=== PATIENT | female | born 1995 | race Caucasian/White ===

== ENCOUNTER 2017-09-12 13:52 | Emergency (ER) | payer BC, OTHER ==
[2017-09-12] MEDS ORDERED: diPHENhydraMINE PO* 25 MG PO ONE (14:17)
--- NOTE | 2017-09-12 15:34 | ED ---
Skin Complaint - HPI Summary HPI Summary: Patient here with bilateral elbow chemical exposure prior to arrival. She was cleaning an oven in the kitchen with sweeper cleaner industrial "break up" when the skin of her elbows moved outside of her protective gloves, causing exposure. She rinsed her elbows for a few minutes under water prior to coming up to the ED. She reports a mild burning sensation with blistering over bilateral elbows. Feels okay but reported to construction supervisor/carpenter who advised she come in for eval. Immunizations are up-to-date. Has allergies and sensitive skin in general. - History of Current Complaint Chief Complaint: EDChemNuclearExpose Time Seen by Provider: 09/12/17 14:11 Stated Complaint: CHEMICAL BURN Hx Obtained From: Patient Hx Last Menstrual Period: 10/27/13 Pain Intensity: 2 - Allergy/Home Medications Allergies/Adverse Reactions: Allergies Allergy/AdvReac Type Severity Reaction Status Date / Time No Known Allergies Allergy Verified 03/06/15 19:43 Home Medications: Home Medications Desloratidine (NF) [Clarinex (NF)] 5 mg PO DAILY 09/12/17 [History Confirmed 10/25] Escitalopram (NF) [Lexapro 5 mg (NF)] 5 mg PO BID 09/12/17 [History Confirmed ] PMH/Surg Hx/FS Hx/Imm Hx Previously Healthy: Yes Endocrine/Hematology History: Denies: Autoimmune Disease Respiratory History: Reports: Hx Seasonal Allergies Psychiatric History: Reports: Hx of Violent Episodes Against Others Denies: Hx Eating Disorder, Hx Community Mental Health Tx - Surgical History Surgery Procedure, Year, and Place: Surgical October 2015 - Immunization History Immunizations Up to Date: Yes Infectious Disease History: No Infectious Disease History: Denies: Hx of Known/Suspected MRSA, Traveled Outside the [place] in Last 30 Days - Family History Known Family History: Positive: Other - Ovarian cysts - Social History Occupation: Employed Full-time Alcohol Use: None Hx Substance Use: No Substance Use Type: Reports: None Hx Tobacco Use: No Smoking Status (MU): Never Smoked Tobacco Review of Systems Negative: Fatigue Negative: Blurred Vision, Drainage, Erythema ENT: Negative - no facial swelling Negative: Shortness Of Breath - no wheezing, Cough Negative: Arthralgia, Myalgia, Decreased ROM, Edema Skin: Other - elbows Neurological: Negative Psychological: Normal All Other Systems Reviewed And Are Negative: Yes Physical Exam Triage Information Reviewed: Yes Vital Signs On Initial Exam: Initial Vitals Temp Pulse Resp BP Pulse Ox 98.4 F 68 14 114/64 98 09/12/17 13:58 09/12/17 13:58 09/12/17 13:58 09/12/17 13:58 09/12/17 13:58 Vital Signs Reviewed: Yes Appearance: Positive: Well-Appearing, No Pain Distress, Well-Nourished Skin: Positive: Warm, Skin Color Reflects Adequate Perfusion, Dry - small cluster of scant/small budding vesicles over olecranon p of B/L elbows - faint erythema compared to surrounding skin - no streaking, no drainage, no desquamatization Head/Face: Positive: Normal Head/Face Inspection Eyes: Positive: Normal, EOMI, Conjunctiva Clear. Negative: Conjunctiva Inflammed, Discharge ENT: Positive: Hearing grossly normal, Other - no facial swelling Neck: Positive: Supple, Nontender, No Lymphadenopathy Respiratory/Lung Sounds: Positive: Clear to Auscultation, Breath Sounds Present. Negative: Stridor, Wheezes Cardiovascular: Positive: Normal Abdomen Description: Positive: Nontender - no nausea Musculoskeletal: Positive: Normal, Strength/ROM Intact Neurological: Positive: Normal, Sensory/Motor Intact, Alert, Oriented to Person Place, Time, CN Intact II-III Psychiatric: Positive: Normal Diagnostics - Vital Signs Vital Signs Temp Pulse Resp BP Pulse Ox 09/12/17 13:58 98.4 F 68 14 114/64 98 - Laboratory Lab Statement: Any lab studies that have been ordered have been reviewed, and results considered in the medical decision making process. Course/Dx - Course Course Of Treatment: MSDS states to rinse area with water for min 15 mins so pt did this here in ED. Offered benadryl for reaction which appears to be quite mild. SHe reports burning sensation improved after rinsing and has no restrictions w/ movement. Will cover with sterile lubricant and clean gauze if needs to wear long sleeve shirts in an effort to protect skin here. She removed her shirt and has not reapplied - advised to wash before wearing again. F/u w/ PCP and return to ED if danger s/sx present. - Diagnoses Provider Diagnoses: Alkaline chemical burn of skin Discharge - Sign-Out/Discharge Documenting (check all that apply): Discharge/Admit/Transfer - Discharge Plan Condition: Stable Disposition: HOME Patient Education Materials: Chemical Skin Burn (ED) Referrals: Yariel Teague MD [Primary Care Provider] - Additional Instructions: Keep skin uncovered and avoid topical such as antibiotic ointment, cosmetics, cleaning solutions such as soaps, etc. if you are wearing longsleeve shirt, he may apply plain lubricant to the affected areas and cover with clean gauze to protect these areas from rubbing on your sleeves. Otherwise, leave open to air. He may take Benadryl 50 mg when he gets home tonight to prevent any further histamine reaction that can lead to swelling, itching and pain. You may also apply ice to the areas they're painful or swollen. Additionally, he may take ibuprofen with food for pain or swelling. Follow up with her PCP tomorrow for recheck of these wounds to make sure they are not worsening in the next 24 hours. Call tomorrow to schedule an appointment. *If you develop difficulty breathing, swallowing or facial swelling, chest tightness, shortness of breath, return to the emergency department. - Billing Disposition and Condition Condition: STABLE Disposition: HOME
[2017-09-12 15:59] VITALS: BP 105/64
== END 2017-09-12 15:59 | disposition home or self-care (01) ==
LOC: ED 13:52
DX: T65.891A Toxic effect of other specified substances, accidental (unintentional), initial encounter (principal); Y93.E9 Activity, other interior property and clothing maintenance; T22.4 Corrosion of unspecified degree of shoulder and upper limb, except wrist and hand; Y92.9 Unspecified place or not applicable
CPT/HCPCS: 99281

== ENCOUNTER 2018-08-29 20:29 | Emergency (ER) | payer BC ==
--- OUTSIDE RECORDS SUMMARY | 2018-08-29 20:35 | XMS REPORT | Continuity of Care Document ---
:1995 External Reference #:[id number] Author Name Kristen Sawyer Care Team Providers Name Role Phone Terese Mejias MD Primary Care Physician Unavailable Payers Date Identification Numbers Payment Provider Subscriber Effective: 2017 Policy Number: [id number] KELLEE Chang PayID: [id number] [address] [address] [place] [id number] Advance Directives Description No Information Available Problems Date Description Provider Status Onset: 05/13/2017 Mild recurrent major depression Yariel Teague M.D. Active Onset: 05/13/2017 Panic disorder with agoraphobia Yariel Teague M.D. Active Onset: 08/10/2017 Contact dermatitis Yariel Teague M.D. Active Family History Date Family Member(s) Observation Comments Father Heart Disease Father Kidney Disease Siblings 1 brain cancer Social History Type Date Description Comments Sex Unknown Tobacco Use Start: Unknown Patient has never smoked Smoking Status Reviewed: 08/02/18 Patient has never smoked Allergies, Adverse Reactions, Alerts Description No Known Drug Allergies Medications Medication Date Status Form Strength Qnty SIG Indications Ordering Provider Hydroxyzine HCL 08/02/ Active Tablets 25mg 60tab 1-2 tablets F41.9 Manuel 2019 s by mouth ELIZABETH Ross every 6 hours as needed for anxiety Citalopram 08/02/ Active Tablets 20mg 30tab 1/2 by mouth F41.9 Manuel Hydrobromide 2019 s every day ELIZABETH Ross for one week and then increase to a whole tablet. Vitamin B12 / Active Tablets ER 1000mcg 1 by mouth Unknown 0000 every day Fish Oil / Active Capsules 1000mg 1 tab by Unknown 0000 mouth every morning Apri / Active Tablets 0.15-30mg 1 by mouth Unknown 0000 -mcg every day Bupropion HCL 06/17/ Hx Tablets 100mg 1 by mouth F41.9 Zsofia 2019 - every day Shaka, 06/17/ COTTAGE SUPERVISOR 2018 Bupropion HCL 06/17/ Hx Tablets 100mg 30tab take 1/2 po F41.9 Zsofia 2019 - s Am every Shaka, 08/02/ other day COTTAGE SUPERVISOR 2019 alternating with Lexapro as discussed Bupropion HCL 06/15/ Hx Tablets ER 100mg 60tab take 1 F41.9 Zsofia ER (SR) 2019 - 12HR s tablet by Shaka, 06/17/ mouth every COTTAGE SUPERVISOR 2019 day in the morning and early afternoon as directed Desloratadine 08/10/ Hx Tablets 5mg 30tab 1 by mouth L30.9 Yariel 2018 - s every day Zahida 06/15/ Shane 2018 No Active 05/13/ Hx Unknown Medications 2017 - 2017 Escitalopram 05/13/ Hx Tablets 5mg 60tab 2 tabs by F33.0 Zsofia Oxalate 2018 - s mouth daily Shaka, 08/02/ and taper as COTTAGE SUPERVISOR 2018 discussed Medications Administered in Office Medication Date Status Form Strength Qnty SIG Indications Ordering Provider Meningococcal, Administered Injection Unknown Unspecified 011 Polio,Unspecif Administered Injection Unknown ied 003 Polio,Unspecif Administered Injection Unknown ied 002 Polio,Unspecif Administered Injection Unknown ied 997 Polio,Unspecif Administered Injection Unknown ied 997 Immunizations CPT Code Status Date Vaccine Lot # [id number] Given 12/27/2013 Varicella (Chicken Pox) Immunization 25947 Given 12/21/2012 Gardasil (HPV) 29909 Given 01/17/2008 Tdap - Tetanus/Diptheria/Acellular Pertussis 25333 Given 08/12/2002 Tdap - Tetanus/Diptheria/Acellular Pertussis 23303 Given 07/26/2002 Varicella (Chicken Pox) Immunization 95759 Given 01/28/2002 Measles Mumps And Rubella MMR 57205 Given 12/24/2001 Tdap - Tetanus/Diptheria/Acellular Pertussis 75637 Given 12/24/2001 Measles Mumps And Rubella MMR 83182 Given 07/11/1997 Hib PRP-Omp Conjugate 3 Dose Schedule 94371 Given 07/11/1997 Tdap - Tetanus/Diptheria/Acellular Pertussis 19272 Given 07/11/1997 Hep B Pediatric/Adolescent 60820 Given 04/09/1997 Tdap - Tetanus/Diptheria/Acellular Pertussis 07638 Given 04/09/1997 Hib PRP-Omp Conjugate 3 Dose Schedule 68301 Given 02/07/1997 Hep B Pediatric/Adolescent 55578 Given 02/07/1997 Tdap - Tetanus/Diptheria/Acellular Pertussis 40641 Given 02/07/1997 Hib PRP-Omp Conjugate 3 Dose Schedule 28474 Given 1996 Hep B Pediatric/Adolescent Vital Signs Date Vital Result Comment 08/02/2018 9:23am Height 61 inches 5'1" Weight 179.00 lb Heart Rate 75 /min BP Systolic 104 mmHg BP Diastolic 67 mmHg Body Temperature 98.0 F O2 % BldC Oximetry 98 % BMI (Body Mass Index) 33.8 kg/m2 06/15/2018 8:19am Height 61 inches 5'1" Weight 176.50 lb Heart Rate 73 /min BP Systolic 111 mmHg BP Diastolic 65 mmHg Body Temperature 97.7 F O2 % BldC Oximetry 100 % BMI (Body Mass Index) 33.3 kg/m2 08/10/2017 7:46am Weight 162.00 lb Heart Rate 73 /min BP Systolic 115 mmHg BP Diastolic 60 mmHg Body Temperature 98.0 F O2 % BldC Oximetry 98 % 05/26/2017 3:31pm Weight 158.00 lb Heart Rate 58 /min BP Systolic Sitting 122 mmHg BP Diastolic Sitting 69 mmHg Body Temperature 97.5 F O2 % BldC Oximetry 98 % 05/13/2017 4:04pm Height 62 inches 5'2" Weight 158.12 lb Heart Rate 70 /min BP Systolic Sitting 116 mmHg BP Diastolic Sitting 76 mmHg Body Temperature 98.7 F O2 % BldC Oximetry 97 % BMI (Body Mass Index) 28.9 kg/m2 Results Test Date Facility Test Result H/L Range Note CBC Auto Diff 10/05/2017 [facility] White Blood 7.4 10^3/uL N 3.5-10.[address] [place] [address] [phone] Red Blood Count 4.30 10^6/uL N 4.0-5.4 Hemoglobin 12.4 g/dL N 12.0-16.0 Hematocrit 38 % N 35-47 Mean Corpuscular Volume 88 fL N 80-97 Mean Corpuscular Hemoglobin 29 pg N 27-31 Mean Corpuscular HGB Conc 33 g/dL N 31-36 Red Cell Distribution Width 13 % N 10.5-15 Platelet Count 245 10^3/uL N 150-450 Mean Platelet Volume 9.3 um3 N 7.4-10.4 Abs Neutrophils 4.6 10^3/uL N 1.5-7.7 Abs Lymphocytes 2.1 10^3/uL N 1.0-4.8 Abs Monocytes 0.6 10^3/uL N 0-0.8 Abs Eosinophils 0.1 10^3/uL N 0-0.6 Abs Basophils 0 10^3/uL N 0-0.2 Abs Nucleated RBC 0 10^3/uL Granulocyte % 61.7 % N 38-83 Lymphocyte % 28.1 % N 25-47 Monocyte % 7.8 % High 0-7 Eosinophil % 1.9 % N 0-6 Basophil % 0.5 % N 0-2 Nucleated Red Blood Cells % 0 Comp Metabolic Panel 10/05/2017 [facility] Sodium 136 mmol/L Low 139-145 [address] [place] [address] [phone] Potassium 4.2 mmol/L N 3.5-5.0 Chloride 102 mmol/L N 101-111 Co2 Carbon Dioxide 28 mmol/L N 22-32 Anion Gap 6 mmol/L N 2-11 Glucose 85 mg/dL N 70-100 Blood Urea Nitrogen 12 mg/dL N 6-24 Creatinine 0.75 mg/dL N 0.51-0.95 BUN/Creatinine Ratio 16.0 N 8-20 Calcium 9.2 mg/dL N 8.6-10.3 Total Protein 6.9 g/dL N 6.4-8.9 Albumin 4.5 g/dL N 3.2-5.2 Globulin 2.4 g/dL N 2-4 Albumin/Globulin Ratio 1.9 N 1-3 Total Bilirubin 0.30 mg/dL N 0.2-1.0 Alkaline Phosphatase 71 U/L N 34-104 Alt 11 U/L N 7-52 Ast 17 U/L N 13-39 Egfr Non- 98.5 >60 Egfr 126.7 >60 1 Laboratory test 05/13/2017 [facility] TSH (Thyroid 3.00 mcIU/mL N 0.34-5.[address] Stim [place]) [place] [address] [phone] Comp Metabolic 05/13/2017 [facility] Sodium 136 mmol/L N 133- [address] [place] [address] [phone] Potassium 4.0 mmol/L N 3.5-5.0 Chloride 101 mmol/L N 101-111 Co2 Carbon Dioxide 29 mmol/L N 22-32 Anion Gap 6 mmol/L N 2-11 Glucose 99 mg/dL N 70-100 Blood Urea Nitrogen 18 mg/dL N 6-24 Creatinine 0.78 mg/dL N 0.51-0.95 BUN/Creatinine Ratio 23.1 High 8-20 Calcium 9.5 mg/dL N 8.6-10.3 Total Protein 7.5 g/dL N 6.4-8.9 Albumin 4.7 g/dL N 3.2-5.2 Globulin 2.8 g/dL N 2-4 Albumin/Globulin Ratio 1.7 N 1-3 Total Bilirubin 0.30 mg/dL N 0.2-1.0 Alkaline Phosphatase 72 U/L N 34-104 Alt 16 U/L N 7-52 Ast 17 U/L N 13-39 Egfr Non- 94.2 >60 Egfr 121.1 >60 2 1 Because ethnic data is not always readily available, this report includes an eGFR for both -Americans and non- Americans. The National Kidney Disease Education Program (NKDEP) does not endorse the use of the MDRD equation for patients that are not between the ages of 18 and 70, are , have extremes of body size, muscle mass, or nutritional status, or are non- or non-. According to the National Kidney Foundation, irrespective of diagnosis, the stage of the disease is based on the level of kidney function: Stage Description GFR(mL/min/1.73 m(2)) 1 Kidney damage with normal or decreased GFR 90 2 Kidney damage with mild decrease in GFR 60-89 3 Moderate decrease in GFR 30-59 4 Severe decrease in GFR 15-29 5 Kidney failure <15 (or dialysis) 2 Because ethnic data is not always readily available, this report includes an eGFR for both -Americans and non- Americans. The National Kidney Disease Education Program (NKDEP) does not endorse the use of the MDRD equation for patients that are not between the ages of 18 and 70, are , have extremes of body size, muscle mass, or nutritional status, or are non- or non-. According to the National Kidney Foundation, irrespective of diagnosis, the stage of the disease is based on the level of kidney function: Stage Description GFR(mL/min/1.73 m(2)) 1 Kidney damage with normal or decreased GFR 90 2 Kidney damage with mild decrease in GFR 60-89 3 Moderate decrease in GFR 30-59 4 Severe decrease in GFR 15-29 5 Kidney failure <15 (or dialysis) Procedures Description No Information Available Encounters Type Date Location Provider Dx Diagnosis Office Visit 06/15/2018 [facility] Adri Matt, F41.9 Anxiety disorder , 8:00a Medicine - [place] COTTAGE SUPERVISOR [address] F33.0 Major depressive disorder, recurrent, mild Office Visit 08/10/2017 8:00a [facility] Yariel Teague, F33.0 Major depressive Medicine - M.D. disorder, [address] recurrent, mild L30.9 Dermatitis, unspecified Office Visit 05/26/2017 3:10p [facility] Marva F33.0 Major depressive Medicine - ELIZABETH Harrington disorder, [address] recurrent, mild F41.9 Anxiety disorder, unspecified Office Visit 05/13/2017 4:20p [facility] Yariel Teague, Z00.00 [facility] - M.D. 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
[2018-08-29 20:41] VITALS: BP 109/69
--- NOTE | 2018-08-29 20:47 | UC ---
Lower Extremity/Ankle HPI - HPI Summary HPI Summary: 22 yo female presents with b/l calf pain. She tells me that 3 days ago she was powerlifting and felt a pull in the back of her calves. Since that time has had pain with ambulating and has not been able to return to the gym. She has been trying to rest her legs, but works at a job that requires her to be on her feet the majority of the day. Has not taken anything OTC for her symptoms. - History of Current Complaint Chief Complaint: UCLowerExtremity Stated Complaint: LEG PAIN Time Seen by Provider: 08/29/18 20:47 Hx Obtained From: Patient Hx Last Menstrual Period: 10/27/13 Onset/Duration: Sudden Onset Severity Initially: Moderate Severity Currently: Moderate Pain Intensity: 6 Pain Scale Used: 0-10 Numeric - Allergies/Home Medications Allergies/Adverse Reactions: Allergies Allergy/AdvReac Type Severity Reaction Status Date / Time No Known Allergies Allergy Verified 08/29/18 20:42 Home Medications: Home Medications Citalopram TAB* [CeleXA TAB*] 10 mg PO DAILY 08/29/18 [History Confirmed ] PMH/Surg Hx/FS Hx/Imm Hx Psychological History: Anxiety - Surgical History Surgical History: Yes Surgery Procedure, Year, and Place: Surgical October 2015 - Family History Known Family History: Positive: Other - Ovarian cysts - Social History Lives: With Family Alcohol Use: Rare Substance Use Type: None Smoking Status (MU): Never Smoked Tobacco Household Exposure Type: Cigarettes - Immunization History Most Recent Influenza Vaccination: 02/27/14 Most Recent Pneumonia Vaccination: UNKNOWN Review of Systems All Other Systems Reviewed And Are Negative: Yes Constitutional: Positive: Negative Skin: Positive: Negative Respiratory: Positive: Negative Cardiovascular: Positive: Negative Neurovascular: Positive: Negative Musculoskeletal: Positive: Other: - B/L calf pain Neurological: Positive: Negative Psychological: Positive: Negative Physical Exam - Summary Physical Exam Summary: GENERAL: NAD. WDWN. No pain distress. SKIN: No rashes, sores, lesions, or open wounds. CHEST: No accessory muscle use. Breathing comfortably and in no distress. CV: . Pulses intact popliteal, PT, and DP. Cap refill <2seconds MSK: Mild TTP about gastroc b/l. Pain with plantar and dorsiflexion b/l. Active ROM and strength intact. Negative hua test. Achilles intact. No muscle bulge appreciated. No ecchymosis NEURO: Alert. Sensations intact and symmetric B/L LEs PSYCH: Age appropriate behavior. Triage Information Reviewed: Yes Vital Signs: Initial Vital Signs Temp 98.4 F 08/29/18 20:36 Pulse 71 08/29/18 20:36 Resp 16 08/29/18 20:36 BP 109/69 08/29/18 20:36 Pulse Ox 100 08/29/18 20:36 Vital Signs Reviewed: Yes Lower Extremity Course/Dx - Course Course Of Treatment: Suspect gastroc strain. Advised to RICE and take ibuprofen for discomfort. F/u with [facility] if there is no improvement within a few days. - Differential Dx/Diagnosis Provider Diagnosis: Gastrocnemius strain Discharge - Sign-Out/Discharge Documenting (check all that apply): Patient Departure All imaging exams completed and their final reports reviewed: No Studies - Discharge Plan Condition: Stable Disposition: HOME Patient Education Materials: Muscle Strain (DC) Referrals: Manuel Ross NP [Primary Care Provider] - [facility] [Provider Group] - If Needed Additional Instructions: If you develop a fever, shortness of breath, chest pain, new or worsening symptoms - please call your PCP or go to the ED. 1) Rest, Ice, and elevate your legs as much as possible 2) Try a compression sleeve for comfort 3) Take ibuprofen 600mg every 6-8 hours as needed for pain 4) If your symptoms do not improve within 1 week, please call [facility] at the number below to schedule an appointment for a recheck - Billing Disposition and Condition Condition: STABLE Disposition: Home
== END 2018-08-29 21:08 | disposition home or self-care (01) ==
LOC: UCEAST 20:29
DX: S86.812A Strain of other muscle(s) and tendon(s) at lower leg level, left leg, initial encounter (principal); S86.811A Strain of other muscle(s) and tendon(s) at lower leg level, right leg, initial encounter; X50.3XXA Overexertion from repetitive movements, initial encounter; Y93.B3 Activity, free weights; Y92.9 Unspecified place or not applicable; F41.9 Anxiety disorder, unspecified
CPT/HCPCS: 99211; G0463

== ENCOUNTER 2019-02-11 15:44 | Emergency (ER) | payer BC ==
[2019-02-11 16:05] VITALS: BP 107/57
--- NOTE | 2019-02-11 16:16 | UC ---
Skin Complaint HPI - HPI Summary HPI Summary: 23 yo with 3 month history of recurrent inflammation, tenderness and drainage of a cyst on the mid left buttock. Both she and her mom have at times pressed and poked at it to make it drain. - History of Current Complaint Chief Complaint: UCSkin Time Seen by Provider: 02/11/19 16:07 Stated Complaint: PERSONAL ISSUE Hx Obtained From: Patient Hx Last Menstrual Period: 3 weeks ago ?: Yes Onset/Duration: Gradual Onset, Lasting Weeks Timing: Constant Onset Severity: Mild Current Severity: Mild Pain Intensity: 1 Location: Discrete Character: Raised Aggravating Factor(s): Touch Alleviating Factor(s): Other - compresses and drainage. Associated Signs & Symptoms: Positive: Negative - Allergy/Home Medications Allergies/Adverse Reactions: Allergies Allergy/AdvReac Type Severity Reaction Status Date / Time No Known Allergies Allergy Verified 02/11/19 15:58 Home Medications: Home Medications Apri* 02/11/19 [History] PMH/Surg Hx/FS Hx/Imm Hx Previously Healthy: Yes - Surgical History Surgical History: Yes Surgery Procedure, Year, and Place: Surgical October 2015, wisdom teeth extraction - Family History Known Family History: Positive: Cardiac Disease - father, Diabetes, Renal Disease - father - Social History Occupation: Employed Full-time Lives: With Family Alcohol Use: Rare Substance Use Type: None Smoking Status (MU): Never Smoked Tobacco Household Exposure Type: Cigarettes - Immunization History Most Recent Influenza Vaccination: 02/27/14 Most Recent Pneumonia Vaccination: UNKNOWN Review of Systems All Other Systems Reviewed And Are Negative: Yes Constitutional: Positive: Negative Skin: Positive: Other - raised nodule on buttock Eyes: Positive: Negative Genitourinary: Positive: Negative Motor: Positive: Negative Neurovascular: Positive: Negative Is Patient Immunocompromised?: No Physical Exam Triage Information Reviewed: Yes Appearance: Well-Appearing, No Pain Distress Vital Signs: Initial Vital Signs Temp 99.3 F 02/11/19 15:54 Pulse 94 02/11/19 15:54 Resp 16 02/11/19 15:54 BP 107/57 02/11/19 15:54 Pulse Ox 99 02/11/19 15:54 Eye Exam: Normal ENT: Positive: Normal ENT inspection Respiratory: Positive: Lungs clear, Normal breath sounds Cardiovascular: Positive: RRR, No Murmur Abdomen Description: Positive: Nontender, No Organomegaly, Soft Musculoskeletal Exam: Normal Neurological Exam: Normal Skin Exam: Other - 1 cm raised nodule, firm, with erythema. Not warm or tender, no pointing. Course/Dx - Course Course Of Treatment: No intervention needed at this time. Will refer for excision of subcutaeous sebaceous cyst. - Differential Diagnoses - Skin Complaint Differential Diagnoses: Abscess, Other - sebaceous cyst - Diagnoses Provider Diagnosis: Sebaceous cyst Discharge ED - Sign-Out/Discharge Documenting (check all that apply): Patient Departure All imaging exams completed and their final reports reviewed: No Studies - Discharge Plan Condition: Good Disposition: HOME Patient Education Materials: Cyst (ED) Referrals: Manuel Ross NP [Primary Care Provider] - Pop Garcia MD [Medical Doctor] - Additional Instructions: At this time, there is no evidence of infection or abscess. [facility] for [facility] of the cyst, although you could also check to see if Manuel Ross does cyst removal. If it becomes inflamed in the meantime, use warm compresses and ibuprofen for control of pain. - Billing Disposition and Condition Condition: GOOD Disposition: Home
== END 2019-02-11 16:35 | disposition home or self-care (01) ==
LOC: UCEAST 15:44
DX: L72.3 Sebaceous cyst (principal)
CPT/HCPCS: 99211; G0463

== ENCOUNTER 2019-02-12 17:15 | Emergency (ER) | payer BC ==
[2019-02-12] MEDS ORDERED: Diphenoxylat/Atrop 2.5-0.025M* 1 TAB PO ONE (19:40)
[2019-02-12 20:16] LABS: ABS Eosinophils 0.3 10^3/ul (0-0.6); ABS Lymphocytes 1.8 10^3/ul (1.0-4.8); ABS Monocytes 0.9 10^3/ul (0-0.8); ABS Neutrophils 3.8 10^3/ul (1.5-7.7); Eosinophil % 4.2 %; Hematocrit 39 % (35-47); Hemoglobin 12.8 g/dL (12.0-16.0); Lymphocyte % 26.4 %; Mean Corpuscular HGB Conc 33 g/dL (31-36); Mean Corpuscular Hemoglobin 29 pg (27-31); Mean Corpuscular Volume 87 fL (80-97); Nucleated Red Blood Cells % 0.1; Platelet Count 293 10^3/uL (150-450); Red Blood Count 4.46 10^6 /uL (3.70-4.87); Red Cell Distribution Width 13 % (10-15); White Blood Count 6.8 10^3/uL (3.5-10.8)
[2019-02-12 20:28] LABS: ALT 15 U/L (7-52); AST 16 U/L (13-39); Albumin 4.2 g/dL (3.2-5.2); Albumin/Globulin Ratio 1.5 (1-3); Alkaline Phosphatase 70 U/L (34-104); Anion Gap 6 mmol/L (2-11); BUN/Creatinine Ratio 10.5 (8-20); Blood Urea Nitrogen 8 mg/dL (6-24); C Reactive Protein 8.54 mg/L (<8.01); CO2 Carbon Dioxide 25 mmol/L (22-32); Chloride 104 mmol/L (101-111); EGFR African American 115.1 (>60); EGFR Non-African American 95.2 (>60); Globulin 2.8 g/dL (2-4); Glucose 87 mg/dL (70-100); Potassium 3.8 mmol/L (3.5-5.0); Sodium 135 mmol/L (135-145)
[2019-02-12 20:34] LABS: HCG Pregnancy < 0.60 mIU/mL
--- NOTE | 2019-02-12 20:54 | ED ---
Nausea/Vomiting/Diarrhea HPI - HPI Summary HPI Summary: Patient complains of intermittent crampy abdominal pain with diarrhea 4 days. Diffuse abdominal cramping has onset with urge to defecate, resolved with defecation. Multiple episodes of diarrhea daily. Denies presence of blood in diarrhea. Has attempted Imodium with no relief. Denies recent antibiotic use, recent foreign travel, recent camping. Denies nausea vomiting, fever, cough, sore throat, CP, SOB, change in urine, vaginal symptoms. Also complains of cyst on left buttocks times months. Patient was seen by community care for same yesterday, diagnosed with sebaceous cyst, no I&D, no antibiotics. Patient advised to follow-up with surgery. Patient denies purulent discharge from cyst , does state clear discharge occasionally. - History of Current Complaint Chief Complaint: EDAbdPain Stated Complaint: CYST, DIARRHEA PER PT Time Seen by Provider: 02/12/19 18:58 Hx Obtained From: Patient Hx Last Menstrual Period: 3 weeks ago Onset/Duration: Sudden Onset, Lasting Days Severity Initially: Moderate Severity Currently: Moderate Pain Intensity: 4 Pain Scale Used: 0-10 Numeric Location: Diffuse Character: Cramping Aggravating Factor(s): Nothing Alleviating Factor(s): Nothing Nausea/Vomiting Presence: None Diarrhea Presence: Yes Diarrhea Frequency: Every 15-60 minutes Diarrhea Characteristics: Watery - Allergies/Home Medications Allergies/Adverse Reactions: Allergies Allergy/AdvReac Type Severity Reaction Status Date / Time No Known Allergies Allergy Verified 02/12/19 17:30 PMH/Surg Hx/FS Hx/Imm Hx Endocrine/Hematology History: Denies: Hx Anticoagulant Therapy Respiratory History: Reports: Hx Seasonal Allergies History: Denies: Hx Dialysis Sensory History: Denies: Hx Legally Blind Opthamlomology History: Denies: Hx Eye Prosthesis EENT History: Denies: Hx Deafness Neurological History: Denies: Hx Developmental Delay Psychiatric History: Reports: Hx of Violent Episodes Against Others Denies: Hx Eating Disorder, Hx Community Mental Health Tx - Surgical History Surgery Procedure, Year, and Place: Surgical October 2015, wisdom teeth extraction Infectious Disease History: No Infectious Disease History: Reports: Hx of Known/Suspected MRSA Denies: Traveled Outside the [place] in Last 30 Days - Family History Known Family History: Positive: Cardiac Disease - father, Diabetes, Renal Disease - father, Other - Ovarian cysts - Social History Alcohol Use: Rare Hx Substance Use: No Substance Use Type: Reports: None Hx Tobacco Use: No Smoking Status (MU): Never Smoked Tobacco Review of Systems Constitutional: Negative Eyes: Negative ENT: Negative Cardiovascular: Negative Respiratory: Negative Positive: Abdominal Pain, Diarrhea Genitourinary: Negative Musculoskeletal: Negative Skin: Other Neurological: Negative Psychological: Normal All Other Systems Reviewed And Are Negative: Yes Physical Exam - Summary Physical Exam Summary: Small 2 cm x 2 cm cyst on medial left gluteus. No purulent discharge. Very minimal pain with palpation. No erythema. Exam not consistent with abscess or infection. Abdomen very mildly tender diffusely. Triage Information Reviewed: Yes Vital Signs On Initial Exam: Initial Vitals Temp Pulse Resp BP Pulse Ox 98.8 F 88 16 144/96 99 02/12/19 17:25 02/12/19 17:25 02/12/19 17:25 02/12/19 17:25 02/12/19 17:25 Vital Signs Reviewed: Yes Appearance: Positive: Well-Appearing Skin: Positive: Warm Head/Face: Positive: Normal Head/Face Inspection Eyes: Positive: Normal Neck: Positive: Supple Respiratory/Lung Sounds: Positive: Clear to Auscultation Cardiovascular: Positive: Normal Abdomen Description: Positive: Other: Musculoskeletal: Positive: Normal Neurological: Positive: Normal Psychiatric: Positive: Normal AVPU Assessment: Alert - Alpha Coma Scale Best Eye Response: 4 - Spontaneous Best Motor Response: 6 - Obeys Commands Best Verbal Response: 5 - Oriented Coma Scale Total: 15 Procedures - Sedation Patient Received Moderate/Deep Sedation with Procedure: No Diagnostics - Vital Signs Vital Signs Temp Pulse Resp BP Pulse Ox 02/12/19 17:25 98.8 F 88 16 144/96 99 - Laboratory Lab Results: Lab Results 02/12/19 02/12/19 Range/Units 20:05 20:05 WBC 6.8 (3.5-10.8) 10^3/uL RBC 4.46 (3.70-4.87) 10^6 /uL Hgb 12.8 (12.0-16.0) g/dL Hct 39 (35-47) % MCV 87 (80-97) fL MCH 29 (27-31) pg MCHC 33 (31-36) g/dL RDW 13 (10-15) % Plt Count 293 (150-450) 10^3/uL MPV 9.0 (7.4-10.4) fL Neut % (Auto) 55.9 % Lymph % (Auto) 26.4 % [place] % (Auto) 12.9 % Eos % (Auto) 4.2 % Baso % (Auto) 0.6 % Absolute Neuts (auto) 3.8 (1.5-7.7) 10^3/ul Absolute Lymphs (auto) 1.8 (1.0-4.8) 10^3/ul Absolute Monos (auto) 0.9 H (0-0.8) 10^3/ul Absolute Eos (auto) 0.3 (0-0.6) 10^3/ul Absolute Basos (auto) 0.0 (0-0.2) 10^3/ul Absolute Nucleated RBC 0.0 10^3/ul Nucleated RBC % 0.1 Sodium 135 (135-145) mmol/L Potassium 3.8 (3.5-5.0) mmol/L Chloride 104 (101-111) mmol/L Carbon Dioxide 25 (22-32) mmol/L Anion Gap 6 (2-11) mmol/L BUN 8 (6-24) mg/dL Creatinine 0.76 (0.51-0.95) mg/dL Est GFR ( Amer) 115.1 (>60) Est GFR (Non-Af Amer) 95.2 (>60) BUN/Creatinine Ratio 10.5 (8-20) Glucose 87 (70-100) mg/dL Calcium 9.0 (8.6-10.3) mg/dL Total Bilirubin 0.20 (0.2-1.0) mg/dL AST 16 (13-39) U/L ALT 15 (7-52) U/L Alkaline Phosphatase 70 (34-104) U/L C-Reactive Protein 8.54 H (<8.01) mg/L Total Protein 7.0 (6.4-8.9) g/dL Albumin 4.2 (3.2-5.2) g/dL Globulin 2.8 (2-4) g/dL Albumin/Globulin Ratio 1.5 (1-3) Beta HCG, Quant < 0.60 mIU/mL Result Diagrams: 02/12/19 20:05 02/12/19 20:05 Lab Statement: Any lab studies that have been ordered have been reviewed, and results considered in the medical decision making process. Naus/Vom/Diarrhea Course/Dx - Course Course Of Treatment: Patient complains of intermittent crampy abdominal pain with diarrhea 4 days. Diffuse abdominal cramping has onset with urge to defecate, resolved with defecation. Multiple episodes of diarrhea daily. Denies presence of blood in diarrhea. Has attempted Imodium with no relief. Denies recent antibiotic use, recent foreign travel, recent camping. Denies nausea vomiting, fever, cough, sore throat, CP, SOB, change in urine, vaginal symptoms. Also complains of cyst on left buttocks times months. Patient was seen by community care for same yesterday, diagnosed with sebaceous cyst, no I&D , no antibiotics. Patient advised to follow-up with surgery. Patient denies purulent discharge from cyst, does state clear discharge occasionally. Vital signs within normal limits. Labs unremarkable. Patient advised to follow-up with surgery for further evaluation of cyst. Trial of low until for diarrhea. - Differential Dx/Diagnosis Provider Diagnosis: Sebaceous cyst, Diarrhea Condition At Discharge: Stable Discharge ED - Sign-Out/Discharge Documenting (check all that apply): Patient Departure - Discharge Plan Condition: Stable Disposition: HOME Prescriptions: Diphenoxylat/Atrop 2.5-0.025M* [Lomotil TAB*] 2 tab PO QID 2 Days #16 tab MDD 8 tabs Patient Education Materials: Acute Diarrhea (ED), Cyst (ED) Forms: *Work Release Referrals: Manuel Ross NP [Primary Care Provider] - Pop Garcia MD [Medical Doctor] - - Billing Disposition and Condition Condition: STABLE Disposition: Home - Attestation Statements Provider Attestation: I was available for consult. This patient was seen by the [facility]. The patient was not presented to, seen by, or examined by me. Kavon Dupree MD
[2019-02-12 22:12] VITALS: BP 133/74
== END 2019-02-12 21:15 | disposition home or self-care (01) ==
LOC: ED 17:15
DX: L72.3 Sebaceous cyst (principal); R19.7 Diarrhea, unspecified
CPT/HCPCS: 36415; 80053; 84702; 85025; 86140; 99282; A9270-GY

== ENCOUNTER 2019-07-31 13:50 | Inpatient (IN) | payer BC ==
--- NOTE | 2019-07-31 14:20 | ED ---
Psychiatric Complaint - HPI Summary HPI Summary: Patient is a 23 y/o F presenting to the ED for a psychiatric complaint. Over the past year, her mental health issues have worsened, including increased anxiety and SI. Patient continues to report SI and anxiety. She denies any other physical complaints, including fever. No aggravating or alleviating factors are reported. PMHx is significant for anxiety and depression. A few months ago, she stopped taking her medications for anxiety and depression for laboratory work and to assess for a thyroid issue. She has seen a psychiatrist in the past, but currently only follows up with her PCP for her mental health problems. Patient notes an inpatient admission for mental health in the past. - History Of Current Complaint Time Seen by Provider: 07/31/19 13:56 Hx Obtained From: Patient Hx Last Menstrual Period: 05/11/19 Onset/Duration: Sudden Onset, Still Present Timing: Constant Severity Initially: Moderate Severity Currently: Moderate Character: Depressed, Anxious Aggravating Factor(s): Nothing Alleviating Factor(s): Nothing Associated Signs And Symptoms: Positive: Negative Related History: Positive For: Prior Psychiatric Issues Has Suicidal: Reports: Thoughts - Allergies/Home Medications Allergies/Adverse Reactions: Allergies Allergy/AdvReac Type Severity Reaction Status Date / Time No Known Allergies Allergy Verified 07/31/19 13:59 Home Medications: Home Medications Meloxicam(NF) [Mobic(NF)] 7.5 mg PO DAILY 07/31/19 [History Confirmed 07/31/19] PMH/Surg Hx/FS Hx/Imm Hx Previously Healthy: Yes Endocrine/Hematology History: Reports: Hx Thyroid Disease Denies: Hx Anticoagulant Therapy Respiratory History: Reports: Hx Seasonal Allergies History: Denies: Hx Dialysis Sensory History: Denies: Hx Eye Prosthesis, Hx Legally Blind, Hx Deafness Opthamlomology History: Denies: Hx Eye Prosthesis, Hx Legally Blind EENT History: Denies: Hx Deafness Neurological History: Denies: Hx Developmental Delay Psychiatric History: Reports: Hx Anxiety, Hx Depression, Hx of Violent Episodes Against Others Denies: Hx Eating Disorder, Hx Community Mental Health Tx - Surgical History Surgical History: Yes Surgery Procedure, Year, and Place: Surgical October 2015, wisdom teeth extraction Infectious Disease History: Yes Infectious Disease History: Reports: Hx of Known/Suspected MRSA - on face many years ago Denies: Traveled Outside the [place] in Last 30 Days - Family History Known Family History: Positive: Cardiac Disease - father, Diabetes, Renal Disease - father, Other - Ovarian cysts - Social History Occupation: Employed Full-time Alcohol Use: Weekly Hx Substance Use: No Substance Use Type: Reports: None Hx Tobacco Use: No Smoking Status (MU): Never Smoked Tobacco Review of Systems Negative: Fever Psychological: Other - Positive SI Positive: Anxious, Depressed All Other Systems Reviewed And Are Negative: Yes Physical Exam - Summary Physical Exam Summary: General: Well appearing, no distress HEENT: PERRL Cardiovascular: Skin is well perfused Pulmonary: No respiratory distress, no tachypnea Abdomen: Non-distended Skin: Warm, pink, dry MSK: No edema Psych: Tearful, positive SI. Neuro: A&Ox3 Triage Information Reviewed: Yes Vital Signs On Initial Exam: Initial Vitals Temp Pulse Resp BP Pulse Ox 99.2 F 81 16 127/77 99 07/31/19 13:53 07/31/19 13:53 07/31/19 13:53 07/31/19 13:53 07/31/19 13:53 Vital Signs Reviewed: Yes Procedures - Sedation Patient Received Moderate/Deep Sedation with Procedure: No Diagnostics - Vital Signs Vital Signs Temp Pulse Resp BP Pulse Ox 07/31/19 13:53 99.2 F 81 16 127/77 99 - Laboratory Result Diagrams: 07/31/19 14:25 07/31/19 14:25 Lab Statement: Any lab studies that have been ordered have been reviewed, and results considered in the medical decision making process. Re-Evaluation - Re-Evaluation First Eval Re-Evaluation Time: 14:15 Change: Unchanged Comment: At 14:15, patient is medically cleared for a mental health evaluation. Course/Dx - Course Course Of Treatment: Patient presenting for mental health clearance. Patient has no active medical conditions warrantly further w/u, vital signs are stable. Patient placed in mental health gown and placed on observation. We'll obtain mental health evaluation. - Differential Dx/Clinical Impression Provider Diagnosis: Depressive disorder - Physician Notifications Discussed Care Of Patient With: Zechariah Mulligan - At 17:02, catering and events manager reports that the patients case was reviewed by Dr. Zechariah Mulligan who will voluntarily admit the patient to [facility] with a diagnosis of depressive disorder. Time Discussed With Above Provider: 17:02 Instructed by Provider To: Admit As Inpatient Discharge ED - Sign-Out/Discharge Documenting (check all that apply): Patient Departure - Admit - Discharge Plan Condition: Stable Disposition: PSYCHIATRIC FACILITY-[facility] - Billing Disposition and Condition Condition: STABLE Disposition: Psychiatric Facility [facility] - Attestation Statements Document Initiated by Carmen: Yes Documenting Scribe: Lor Maurice Provider For Whom Carmen is Documenting (Include Credential): Juan Pablo Boyle MD Scribe Attestation: Lor Zazueta, scribed for Juan Pablo Boyle MD on 07/31/19 at 1801. Scribe Documentation Reviewed: Yes Provider Attestation: The documentation as recorded by the Lor garcia accurately reflects the service I personally performed and the decisions made by Juan Pablo de la rosa MD Status of Scribe Document: Viewed
--- OUTSIDE RECORDS SUMMARY | 2019-07-31 14:23 | XMS REPORT | Continuity of Care Document ---
:1995 External Reference #:[id number] Author Name Manuel Ross NP (transmitted by agent of provider Keisha Alaniz) Address [address] [facility], [address] [place] [id number] Care Team Providers Name Role Phone Terese Mejias MD - Internal Medicine Care Team Information Vegetable Thinner Problems Active Problems Provider Date Mild recurrent major depression Yariel Teague M.D. Onset: 05/13/2017 Panic disorder with agoraphobia Yariel Teague M.D. Onset: 05/13/2017 Contact dermatitis Yariel Teague M.D. Onset: 08/10/2017 Social History Type Date Description Comments Sex Unknown Tobacco Use Start: Unknown Patient has never smoked Smoking Status Reviewed: 07/17/19 Patient has never smoked Allergies, Adverse Reactions, Alerts Description No Known Drug Allergies Medications Active Medications SIG Qnty Indications Ordering Provider Date Meloxicam 1 -2 tablets by 60tabs M54.2 Manuel Ross NP 10/17/2018 7.5mg Tablets mouth once daily as needed History Medications Fluticasone Propionate 2 sprays each 16gm Karyn Varn, 06/01/2019 - nostril daily as N.P. 06/15/2019 50mcg/Act Suspension needed Medications Administered in Office Medication SIG Qnty Indications Ordering Provider Date Meningococcal,Unspecified Unknown 12/08/2010 Injection Polio,Unspecified Unknown 08/12/2002 Injection Polio,Unspecified Unknown 01/28/2002 Injection Polio,Unspecified Unknown 04/09/1997 Injection Polio,Unspecified Unknown 02/07/1997 Injection Immunizations CPT Code Status Date Vaccine Lot # [id number] Given 12/27/2013 Varicella (Chicken Pox) Immunization 72541 Given 12/21/2012 Gardasil (HPV) 56661 Given 01/17/2008 Tdap - Tetanus/Diptheria/Acellular Pertussis 96833 Given 08/12/2002 Tdap - Tetanus/Diptheria/Acellular Pertussis 59064 Given 07/26/2002 Varicella (Chicken Pox) Immunization 52865 Given 01/28/2002 Measles Mumps And Rubella MMR 06224 Given 12/24/2001 Tdap - Tetanus/Diptheria/Acellular Pertussis 29159 Given 12/24/2001 Measles Mumps And Rubella MMR 76269 Given 07/11/1997 Hib PRP-Omp Conjugate 3 Dose Schedule 06386 Given 07/11/1997 Tdap - Tetanus/Diptheria/Acellular Pertussis 40737 Given 07/11/1997 Hep B Pediatric/Adolescent 34649 Given 04/09/1997 Tdap - Tetanus/Diptheria/Acellular Pertussis 70146 Given 04/09/1997 Hib PRP-Omp Conjugate 3 Dose Schedule 32094 Given 02/07/1997 Hep B Pediatric/Adolescent 62490 Given 02/07/1997 Tdap - Tetanus/Diptheria/Acellular Pertussis 76389 Given 02/07/1997 Hib PRP-Omp Conjugate 3 Dose Schedule 73301 Given 1996 Hep B Pediatric/Adolescent Vital Signs Date Vital Result Comment 07/17/2019 2:19pm Height 61 inches 5'1" Weight 183.25 lb Heart Rate 88 /min BP Systolic Sitting 106 mmHg BP Diastolic Sitting 69 mmHg Body Temperature 97.8 F O2 % BldC Oximetry 97 % BMI (Body Mass Index) 34.6 kg/m2 05/29/2019 2:59pm Height 61 inches 5'1" Weight 179.38 lb Heart Rate 115 /min BP Systolic Sitting 113 mmHg BP Diastolic Sitting 74 mmHg Body Temperature 99.8 F O2 % BldC Oximetry 97 % BMI (Body Mass Index) 33.9 kg/m2 Results Test Acquired Date Facility Test Result H/L Range Note CBC Auto 07/17/2019 [facility] [place] White Blood 7.9 10^3/uL Normal 3.5-10.[address] [place] [address] [phone] Red Blood Count 4.55 10^6/uL Normal 3.70-4.87 Hemoglobin 13.3 g/dL Normal 12.0-16.0 Hematocrit 40 % Normal 35-47 Mean Corpuscular Volume 87 fL Normal 80-97 Mean Corpuscular Hemoglobin 29 pg Normal 27-31 Mean Corpuscular HGB Conc 34 g/dL Normal 31-36 Red Cell Distribution Width 13 % Normal 10-15 Platelet Count 244 10^3/uL Normal 150-450 Mean Platelet Volume 9.7 fL Normal 7.4-10.4 Abs Neutrophils 6.1 10^3/uL Normal 1.5-7.7 Abs Lymphocytes 1.1 10^3/uL Normal 1.0-4.8 Abs Monocytes 0.6 10^3/uL Normal 0-0.8 Abs Eosinophils 0.1 10^3/uL Normal 0-0.6 Abs Basophils 0.0 10^3/uL Normal 0-0.2 Abs Nucleated RBC 0.0 10^3/uL Granulocyte % 76.9 % Lymphocyte % 13.6 % Monocyte % 7.9 % Eosinophil % 1.0 % Basophil % 0.6 % Nucleated Red Blood Cells % 0.0 Comp Metabolic 07/17/2019 [facility] [place] Sodium 138 mmol/L Normal 135-[address] [place] [address] [phone] Potassium 4.1 mmol/L Normal 3.5-5.0 Chloride 102 mmol/L Normal 101-111 Co2 Carbon Dioxide 30 mmol/L Normal 22-32 Anion Gap 6 mmol/L Normal 2-11 Glucose 98 mg/dL Normal 70-100 Blood Urea Nitrogen 15 mg/dL Normal 6-24 Creatinine 0.72 mg/dL Normal 0.51-0.95 BUN/Creatinine Ratio 20.8 High 8-20 Calcium 9.8 mg/dL Normal 8.6-10.3 Total Protein 7.1 g/dL Normal 6.4-8.9 Albumin 4.6 g/dL Normal 3.2-5.2 Globulin 2.5 g/dL Normal 2-4 Albumin/Globulin Ratio 1.8 Normal 1-3 Total Bilirubin 0.50 mg/dL Normal 0.2-1.0 Alkaline Phosphatase 89 U/L Normal 34-104 Alt 57 U/L High 7-52 Ast 36 U/L Normal 13-39 Egfr Non- 101.3 >60 Egfr 122.6 >60 1 Laboratory test finding 07/17/2019 [facility] [place] Cortisol 6.07 g/ dL [address] [place] [address] [phone] TSH (Thyroid Stim Horm) 1.92 mcIU/mL Normal 0.34-5.60 C Reactive Protein 14.08 mg/L High <8.01 Connective Tissue 07/17/2019 [facility] [place] Anti-Nuclear 1.9 U High [address] [place] [address] [phone] Cyclic Citrullinated Peptide <15.6 U 4 Interpretation See Comment 5 Laboratory test 07/17/2019 [facility] [place] Rheumatoid < 10 IU/mL Normal <[address] [place] [address] [phone] Hla B27 07/17/2019 [facility] [place] Hla B27 Negative [address] [place] [address] [phone] Hla B27 Interp See Comment 7 Laboratory test 07/17/2019 [facility] [place] Vitamin B12 516 Normal 180-[address] pg/[place] [address] [phone] Testosterone 07/17/2019 [facility] [place] Free 0.44 0.06-1.08 9 Free & Total [address] Testosterone ng/[place] [address] ng/dl [phone] Testosterone 20 ng/dL 8-60 10 Influenza A & B 07/17/2019 [facility] [place] Influenza A Negative Negative [address] [place] [address] [phone] Influenza B Molecular Negative Negative 12 Flu AB Disclaimer (SEE NOTE) 13 Influenza A & B 05/29/2019 [facility] [place] Influenza A NEGATIVE Negative [address] [place] [address] [phone] Influenza B Molecular NEGATIVE Negative 15 Flu AB Disclaimer (SEE NOTE) 16 Laboratory test 05/29/2019 [facility] [place] Culture SEE RESULT 17 , [address] [place] [address] [phone] CBC Auto Diff 02/12/2019 [facility] [place] White Blood 6.8 Normal 3.5 - [address] Count 10^3/uL 10.8 [place] [address] [phone] Red Blood Count 4.46 10^6/uL Normal 3.70-4.87 Hemoglobin 12.8 g/dL Normal 12.0-16.0 Hematocrit 39 % Normal 35-47 Mean Corpuscular Volume 87 fL Normal 80-97 Mean Corpuscular Hemoglobin 29 pg Normal 27-31 Mean Corpuscular HGB Conc 33 g/dL Normal 31-36 Red Cell Distribution Width 13 % Normal 10-15 Platelet Count 293 10^3/uL Normal 150-450 Mean Platelet Volume 9.0 fL Normal 7.4-10.4 Abs Neutrophils 3.8 10^3/uL Normal 1.5-7.7 Abs Lymphocytes 1.8 10^3/uL Normal 1.0-4.8 Abs Monocytes 0.9 10^3/uL High 0-0.8 Abs Eosinophils 0.3 10^3/uL Normal 0-0.6 Abs Basophils 0.0 10^3/uL Normal 0-0.2 Abs Nucleated RBC 0.0 10^3/uL Granulocyte % 55.9 % Lymphocyte % 26.4 % Monocyte % 12.9 % Eosinophil % 4.2 % Basophil % 0.6 % Nucleated Red Blood Cells % 0.1 Comp Metabolic 02/12/2019 [facility] [place] Sodium 135 mmol/L Normal 135-[address] [place] [address] [phone] Potassium 3.8 mmol/L Normal 3.5-5.0 Chloride 104 mmol/L Normal 101-111 Co2 Carbon Dioxide 25 mmol/L Normal 22-32 Anion Gap 6 mmol/L Normal 2-11 Glucose 87 mg/dL Normal 70-100 Blood Urea Nitrogen 8 mg/dL Normal 6-24 Creatinine 0.76 mg/dL Normal 0.51-0.95 BUN/Creatinine Ratio 10.5 Normal 8-20 Calcium 9.0 mg/dL Normal 8.6-10.3 Total Protein 7.0 g/dL Normal 6.4-8.9 Albumin 4.2 g/dL Normal 3.2-5.2 Globulin 2.8 g/dL Normal 2-4 Albumin/Globulin Ratio 1.5 Normal 1-3 Total Bilirubin 0.20 mg/dL Normal 0.2-1.0 Alkaline Phosphatase 70 U/L Normal 34-104 Alt 15 U/L Normal 7-52 Ast 16 U/L Normal 13-39 Egfr Non- 95.2 >60 Egfr 115.1 >60 19 Laboratory test 02/12/2019 [facility] [place] C Reactive 8.54 mg/L High <8.[address] [place] [address] [phone] HCG < 0.60 mIU/mL 20 1 Because ethnic data is not always [...] 5 Kidney failure <15 (or dialysis) 2 AM 8.7-22.4 PM <10 3 Interpretation: Weak Positive (1.1-2.9) REFERENCE VALUE <=1.0 (Negative) 4 REFERENCE VALUE <20.0 (Negative) 5 Tests for antibodies to dsDNA and PEEWEE antigens are not performed automatically unless the MAX result is > or = 3.0 U. Studies performed at [facility] indicate that positive MAX results <3.0 U are rarely accompanied by positive second order tests. Test Performed by: [facility] [address] [place] [address] Candy Decorator: Curtis Hunter M.D. Ph.D.; CLIA# [id number] 6 REFERENCE VALUE Not Applicable 7 RESULT: HLA-B27 antigen was not detected. ADDITIONAL INFORMATION Method: Flow Cytometry CLIA: [id number] CLIA Candy Decorator: CURTIS HUNTER MD,PhD Test Performed by: [facility] [place] [id number] Candy Decorator: Curtis Hunter M.D. Ph.D.; CLIA# [id number] 8 Normal Range 180 to 914 Indeterminate Range 145 to 180 Deficient Range <145 9 ADDITIONAL INFORMATION Testing performed by [facility]. This test was developed and its performance characteristics determined by [facility] in a manner consistent with CLIA requirements. This test has not been cleared or approved by the U.S. Food and Drug Administration. 10 ADDITIONAL INFORMATION Testing performed by Liquid Chromatography-Tandem Mass Spectrometry (LC-MS/MS). This test was developed and its performance characteristics determined by [facility] in a manner consistent with CLIA requirements. This test has not been cleared or approved by the U.S. Food and Drug Administration. Test Performed by: [facility] [address] [place] [address] Candy Decorator: Curtis Hunter M.D. Ph.D.; CLIA# [id number] 11 [id number] 12 Turkish Rubber: [id number] 13 Suboptimal collection technique may reduce sensitivity of test. Refer to the [employer] Test Catalog for collection information: https://Next 1 [email or web address] As with all diagnostic procedures, the laboratory results obtained should be used in conjunction with other clinical information available to the physician, including confirmation by another method, as applicable. 14 [id number] 15 Turkish Rubber: [id number] 16 Suboptimal collection technique may reduce sensitivity of test. Refer to the [facility] Test Catalog for collection information: https://Next 1 [email or web address] As with all diagnostic procedures, the laboratory results obtained should be used in conjunction with other clinical information available to the physician, including confirmation by another method, as applicable. 17 [id number] 18 SEE RESULT BELOW Name: DAWN MONGE : [address]: Karyn Manrique NP Acct: [id number] Unit: [id number] AGE: 23 Location: [facility] Re05/29/19 SEX: F Status: REG REF SPEC: [id number] CHANTE: 05/29/19-1518 [facility] : Karyn Manrique NP REQ: [id number] RECD: 05/29/19 STATUS: COMP _ SOURCE: THROAT SPDESC: ORDERED: Throat Culture COMMENTS: [id number] Procedure Result Reported Site Throat Culture Final 05/31/19- 0950 ML Organism 1 NORMAL SERGIO Quantity 3+ Throat cultures are clinically indicated to detect the presence of group A strep, arcanobacterium and yeast. In certain cases, predominating organisms will be reported. * ML - Main Lab . END OF REPORT DEPARTMENT OF PATHOLOGY, [address] [place] [address] Gaston Silva M.D. Director [facility] # [id number] 19 Because ethnic data is not always readily [...] 15-29 5 Kidney failure <15 (or dialysis) 20 <5.0 Negative 5.0 - 25.0 Indeterminate (Repeat testing recommended after 72 hours) >25.0 Positive Perimenopausal women can display HCG levels of up to 20 mIU/mL Procedures Description No Information Available Medical Devices Description No Information Available Encounters Type Date Location Provider Dx Diagnosis Office Visit 07/17/2019 [facility] Internal Manuel Vandana, ELIZABETH J06.9 Acute upper 2:20p Medicine - Ccmob respiratory infection, unspecified R53.83 Other fatigue M25.50 Pain in unspecified joint L70.0 Acne vulgaris Office Visit 05/29/2019 2:40p [facility] Internal Karyn Manrique J02.8 Acute pharyngitis Medicine - N.P. due to other Ccmob specified organisms Assessments Date Code Description Provider 07/17/2019 J06.9 Acute upper respiratory infection, unspecified Manuel Vandana, INVENTORY COORDINATOR 07/17/2019 R53.83 Other fatigue Manuel Vandana, INVENTORY COORDINATOR 07/17/2019 M25.50 Pain in unspecified joint Amnuel Vandana, INVENTORY COORDINATOR 07/17/2019 L70.0 Acne vulgaris Manuel Vandana, INVENTORY COORDINATOR 05/29/2019 J02.8 Acute pharyngitis due to other specified Karyn Manrique, N.P. organisms Plan of Treatment No Information Available Functional Status Description No Information Available Mental Status Description No Information Available Referrals Description No Information Available
[2019-07-31 14:52] LABS: ABS Monocytes 0.6 10^3/ul (0-0.8); ABS Neutrophils 7.2 10^3/ul (1.5-7.7); Eosinophil % 0.4 %; Hematocrit 37 % (35-47); Hemoglobin 12.4 g/dL (12.0-16.0); Lymphocyte % 19.9 %; Mean Corpuscular HGB Conc 34 g/dL (31-36); Mean Corpuscular Hemoglobin 29 pg (27-31); Mean Corpuscular Volume 86 fL (80-97); Mean Platelet Volume 9.2 fL (7.4-10.4); Nucleated Red Blood Cells % 0.1; Platelet Count 260 10^3/uL (150-450); Red Blood Count 4.23 10^6 /uL (3.70-4.87); Red Cell Distribution Width 14 % (10-15)
[2019-07-31 15:01] LABS: ALT 17 U/L (7-52); AST 17 U/L (13-39); Albumin 4.6 g/dL (3.2-5.2); Albumin/Globulin Ratio 1.8 (1-3); Alkaline Phosphatase 75 U/L (34-104); Anion Gap 7 mmol/L (2-11); BUN/Creatinine Ratio 9.7 (8-20); Blood Urea Nitrogen 7 mg/dL (6-24); CO2 Carbon Dioxide 26 mmol/L (22-32); Calcium 9.4 mg/dL (8.6-10.3); Chloride 104 mmol/L (101-111); EGFR African American 122.6 (>60); EGFR Non-African American 101.3 (>60); Globulin 2.5 g/dL (2-4); Glucose 96 mg/dL (70-100); Sodium 137 mmol/L (135-145); Total Protein 7.1 g/dL (6.4-8.9)
[2019-07-31 15:08] LABS: HCG Pregnancy < 0.60 mIU/mL
[2019-07-31 15:21] LABS: Acetaminophen < 15 mcg/mL; Alcohol < 10 mg/dL (<10); Salicylate < 2.50 mg/dL (<30)
[2019-07-31 15:36] LABS: TSH (Thyroid Stimulating Horm) 5.91 mcIU/mL (0.34-5.60)
[2019-07-31] MEDS ORDERED: Al Hydrox/Mg Hydrox/Simet LIQ* 30 ML UDC PO PRN (17:02)
[2019-07-31] MEDS ORDERED: hydrOXYzine HCL TAB* 50 MG PO PRN (17:04)
[2019-07-31 18:31] LABS: Urine Appearance Cloudy; Urine Bilirubin Negative (Negative); Urine Blood Negative (Negative); Urine Color Yellow; Urine Glucose Negative (Negative); Urine Ketones Negative (Negative); Urine Nitrite Negative (Negative); Urine Protein Negative (Negative); Urine Urobilinogen Negative (Negative)
[2019-07-31 18:50] LABS: Urine Benzodiazepine Screen None Detected (None Detect); Urine Opiates Screen None Detected (None Detect)
[2019-08-01 06:47] LABS: HDL Cholesterol 46.6 mg/dL
--- NOTE | 2019-08-01 11:05 | PN ---
BSU: Group Therapy Note - Service Type Service Type: 17955 Psychotherapy - Individual Psychotherapy Note: Dawn describes encroaching problems with depression in recent weeks, citing a lack of social supports either at home or in the work context. She describes increased sense of isolation secondary to covid-19 issues, as well as job responsibilities that impress as either solitary activity broken up by contentious work relationships. Dawn described having struggled with suicidal rumination in recent days and self injured, cutting one of her legs. She is open in conversation in relevent topics, and impresses as a good candidate to benefit from short term stay and get engaged in outpatient treatment.
[2019-08-01] MEDS: CMCS - Meloxicam(NF) 7.5 MG TAB PO SCH (14:56)
--- NOTE | 2019-08-01 16:26 | HP ---
HISTORY AND PHYSICAL: DATE OF ADMISSION: 07/31/19 PROVIDER: Keyla Burt NP, Psychiatry SUPERVISING PHYSICIAN: Zechariah Mulligan MD* (Keyla Burt NP, Psychiatry). JUSTIFICATION FOR ADMISSION: The patient is in need of 24-hour supervision and care secondary to suicidal ideation. CHIEF COMPLAINT: "I have a lot of issues with people... I don't know how I make people angry." HISTORY OF PRESENT ILLNESS: The patient is a 23-year-old single white female with a history of depression, who arrives brought in by herself and her mother and is here on a voluntary status after suicidal thoughts became overwhelming and she could no longer manage without an external help. Dawn describes her life as very confusing. She states people are constantly telling her that she is doing things wrong and they are constantly teasing her. Her description sounds as though she is being bullied almost constantly. She states she does not get along with any of her coworkers and she feels as though she is constantly alone. She says when she is at home, she sits around and watches TV with her cat and she sleeps as much as possible. She states that she feels as though she reacts quickly and is irritable. She states that sometimes she has to "get into that" teasing and argue with them. She also asserts that she has "a quick temper... I let things build up" but we attempted to indicate that anyone who let things build up for as long as she does would indeed appear to have a quick temper while in fact they have a long fuse. Dawn describes having 2 types of behavior: she states the week before her period and the week of her period, her mother indicates that she makes no sense. She says she feels rage. She has memory gaps. She feels like a superhero, pain goes away for her. She often has sleeping problems, sometimes she sleeps too much, sometimes she does not sleep at all, and she states she never feels rested. The following two weeks, she is melancholy and lonely, feels abandoned and has suicidal thoughts. PAST PSYCHIATRIC HISTORY: She was admitted here once before in 2013 where she was diagnosed with depressive disorder. She is currently followed by Manuel Ross NP in outpatient. She does not currently have a therapist. She has had suicidal ideation many times before. She has had no attempts. She has injured herself by cutting her leg on her thigh, but she does not recall doing this. Previously she has used Prozac, citalopram, and bupropion. Bupropion caused her to stutter and tremor and feel agitated. PAST MEDICAL HISTORY: She reports that she is "knock-kneed" which is actually patellofemoral syndrome. She also has scoliosis. Her coworkers have renamed her "Mari" due to some clumbsiness. We point out to her that perhaps some of her clumsiness might be because of these 2 issues with her body. It should be noted that she has tried control pills, an IUD, and both at the same time , and none of these has been of help with her mood shifts. She still feels these 2 senses of being and they are related to her menstrual cycle. FAMILY HISTORY: She states that there is severe depression on both sides and possibly bipolar disorder, certainly her father is delusional, believes conspiracy theories and [place]. SUBSTANCE ABUSE: She does not smoke or use nicotine. Occasionally, she will have a drink or smoke marijuana to help her sleep. Her drug screen was free from all drugs of abuse. SOCIAL HISTORY: She was born to both parents, currently lives with her mom, has a brother who no longer wants to speak with her. She says in that her father left her and her brother would not talk to her and leaves the conclusion to be drawn that she feels abandoned. She denies having been abused. She has been educated up to high school. She started some [employer] courses but felt overwhelmed by the largeness of the class. She states she has never been partnered. She has never been able to keep anyone with her for longer than a few months. 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 She has no experience. There are no legal problems. REVIEW OF SYSTEMS: The patient reports feeling fatigued. She denies shortness of breath, heat or cold intolerance, chest pain or abdominal pain. She denies neurological symptoms. She denies fevers or changes in weight. PHYSICAL EXAMINATION GENERAL: Well appearing, no distress. VITAL SIGNS: On 08/01/19, her temperature is 98.5, pulse 85, respirations 13, O2 sat on room air 100%, blood pressure 123/67. HEENT: PERRL. PULMONARY: No respiratory distress. No tachypnea. CARDIOVASCULAR: Skin is well perfused. ABDOMEN: Nondistended. MUSCULOSKELETAL: No edema. NEUROLOGICAL: Alert and oriented x4. SKIN: Warm, pink, dry. DIAGNOSTIC STUDIES/LAB DATA: Laboratory data is within normal limits with the exceptions of TSH being high at 5.91. All other data are within normal limits. MENTAL STATUS EXAMINATION: Dawn is a 5-foot 1-inch, 185-pound young woman with her hair back in a Kosovan braid and she is wearing 2 shirts as she is cold. She sits quietly and appropriately in the rocking chair in the small phone room. She is calm and cooperative, occasionally tearful. Her speech is of normal rate, tone, and volume. She is clearly dysthymic. She has a full range of affect. Her thought processes appear to be normal. She is free from delusions. She is having suicidal ideation. She is not having homicidal ideation. She is not hallucinating. Her insight is good. Her judgment is fair. She is alert and oriented x4. DIAGNOSIS: Bipolar I disorder. IMPRESSION: Dawn is a 23-year-old white woman who is newly diagnosed with bipolar disorder, who came to the hospital with suicidal ideation that has been unremitting for several weeks. 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 PLAN: The patient is admitted to the adult behavioral health unit and placed on q.15-minute checks for her own safety. She is encouraged to participate in supportive milieu, individual and group therapies. Estimated length of stay is 5 to 7 days. We will titrate medications including starting lithium to efficacy and monitor for mood and thought content. Discharge planning will include family involvement and outpatient providers. KEYLA BURT, ELIZABETH [id number]/[facility] #: [id number] MARLI
[2019-08-01] MEDS: Lithium Carbonate TAB* 300 MG PO SCH (20:29)
[2019-08-01] MEDS: Acetaminophen TAB* 325 MG PO PRN (20:30)
[2019-08-02] MEDS: Lithium Carbonate TAB* 300 MG PO SCH ×2 (09:02→20:26)
[2019-08-02] MEDS: CMCS - Meloxicam(NF) 7.5 MG TAB PO SCH (09:02)
--- NOTE | 2019-08-02 10:37 | PN ---
Subjective - Subjective Date of Service: 08/02/19 Service Type: 78928 Hosp care 15 min low complexity Subjective: Dawn is found in bed, just waking up. She wanted to meet now vs later when she is more awake. She reports feeling "fuzzy" today, but she understands that this is likely from the Mulhall and is temporary. She is eager to attend groups and agrees with her new diagnosis. Between groups we play a game of [employer], which she is good at. She also enjoys [employer] and crossword puzzles. She is charming and polite while we play and talk. Concerns about her social skills were unfounded. Objective - General Observations Appearance: Well Groomed Appears Stated Age: Yes Stature: WNL Posture: Slumped Eye Contact: Average Behavior/Activity: Accelerated - Interaction Observations Attitude Towards Examiner: Cooperative Stated Mood: Dysphoric Affect: Full Speech Pattern/Tone: Clear Thought Process: Coherent, Goal Directed Perception: WNL Thought Content: WNL Thought Process: Lethality: Passive Wish, Suicidal Planning Hallucination Type: None Delusion Type: None - Cognitive Function Orientation: A&O x 4 Level of Consciousness: Awake, Appropriate, Drowsy Cognition: Impaired Cognition Estimated Intelligence: Normal Insight: WNL Judgment Within Normal Limits: No Ability to Make Reasonable Decisions: Mildly Impaired - Medication Compliance Cooperative with Inpatient Medication Regimen: Yes - Group Participation Participates in Group Activities: Yes Assessment - Assessment Merits Inpatient Hospitalization: For Immediate Safety, To Initiate Treatment Inpatient DSM-V Dx: F31.4 Clinical Impression: Dawn is a 23 year old white female who was admitted to the [facility] with suicidal ideation and overwhelming thoughts. She has been newly diagnosed with Bipolar I disorderand finds that it explains much of her behavior, which relieves some of her distress. Plan - Plan Treatment Plan: Name: DAWN FAUST Birthdate: 1995 [id number] Mulhall 300 BID. Stop antidepressants. Encourage group attendance. Encourage interaction with staff and patients. Continued Medication Management: Different Medication Medications: Current Medications Acetaminophen (Tylenol Tab*) 650 mg PO Q4H PRN PRN Reason: for pain; or Temp >101 F Last Admin: 08/01/19 20:30 Dose: 650 mg Al Hydrox/Mg Hydrox/Simethicone (Maalox Plus*) 30 ml PO Q4H PRN PRN Reason: INDIGESTION Hydroxyzine HCl (Atarax Tab*) 50 mg PO Q6H PRN PRN Reason: anxiety Mulhall Carbonate (Mulhall Carbonate Tab*) 300 mg PO BID [facility] Last Admin: 08/02/19 09:02 Dose: 300 mg Meloxicam (Mobic(Nf)) 7.5 mg PO DAILY [facility] Last Admin: 08/02/19 09:02 Dose: 7.5 mg - Discharge Plan Discharge Plan: Outpatient Follow Up
[2019-08-03] MEDS: CMCS - Meloxicam(NF) 7.5 MG TAB PO SCH (08:33)
[2019-08-03] MEDS: Lithium Carbonate TAB* 300 MG PO SCH (08:33)
--- NOTE | 2019-08-03 10:48 | PN ---
Subjective - Subjective Date of Service: 08/03/19 Service Type: 63154 Hosp care 15 min low complexity Subjective: Alerted Dawn to her discharge tomorrow, if she is agreeable. She is delighted. She understands that although she feels well today, I would like to increase her lithium tonight and change it to ER. Also, I would like to get a lithium level in the morning as a baseline for going forward. Dawn stats she feels more clear than she has since she was "a little kid." She is bright and happy. She talked to her brother, who she had been estranged from. He acknowledged that her behavior in the past had been unacceptable at times and he was worried about her being around his new baby with the way she had acted in the past. Dawn has put in place goals such as de-cluttering her home and doing more than just watching television when she gets home. She is motivated and energized at this time. Objective - General Observations Appearance: Neat Appears Stated Age: Yes Stature: WNL Posture: WNL Eye Contact: Average Behavior/Activity: Accelerated - Interaction Observations Attitude Towards Examiner: Cooperative Stated Mood: Euthymic Affect: Full, Bright Speech Pattern/Tone: Clear, Appropriate, Normal Volume Thought Process: Coherent, Goal Directed Thought Content: WNL Hallucination Type: None Delusion Type: None - Cognitive Function Orientation: A&O x 4 Level of Consciousness: Awake, Alert, Appropriate Cognition: Impaired Cognition, Impaired Fund of Knowledge Estimated Intelligence: Normal Insight: WNL Judgment Within Normal Limits: No Ability to Make Reasonable Decisions: Mildly Impaired - Medication Compliance Cooperative with Inpatient Medication Regimen: Yes - Group Participation Participates in Group Activities: Yes Assessment - Assessment Merits Inpatient Hospitalization: For Immediate Safety Inpatient DSM-V Dx: F31.4 Clinical Impression: Dawn is a 23 year old white female who was admitted to the [facility] with suicidal ideation and overwhelming thoughts. She has been newly diagnosed with Bipolar I disorder and finds that it explains much of her behavior, which relieves some of her distress. Plan - Plan Treatment Plan: Name: DAWN FAUST Birthdate: 1995 [id number] [place] 300 BID. Stop antidepressants. Encourage group attendance. Encourage interaction with staff and patients. [place] 300 BID having been tolerated well, we will increase lithium to 900 mg and change it to extended release as that it most likely to be taken reliably. A lithium level is scheduled for tomorrow morning. Although it will not reflect the results of her 900 mg XL dose, it will offer a baseline for the future. Continued Medication Management: Different Medication Medications: Current Medications Acetaminophen (Tylenol Tab*) 650 mg PO Q4H PRN PRN Reason: for pain; or Temp >101 F Last Admin: 08/01/19 20:30 Dose: 650 mg Al Hydrox/Mg Hydrox/Simethicone (Maalox Plus*) 30 ml PO Q4H PRN PRN Reason: INDIGESTION Hydroxyzine HCl (Atarax Tab*) 50 mg PO Q6H PRN PRN Reason: anxiety [place] Carbonate ([place] Carbonate Er Tab*) 900 mg PO BEDTIME GURWINDER Meloxicam (Mobic(Nf)) 7.5 mg PO DAILY GURWINDER Last Admin: 08/03/19 08:33 Dose: 7.5 mg - Discharge Plan Discharge Plan: Outpatient Follow Up Outpatient Program: [facility]
[2019-08-03] MEDS: Acetaminophen TAB* 325 MG PO PRN (20:58)
[2019-08-03] MEDS ORDERED: Lithium Carbonate ER* 450 MG TAB.ER PO SCH (21:00)
[2019-08-04 09:31] VITALS: BP 116/66
[2019-08-04] MEDS: CMCS - Meloxicam(NF) 7.5 MG TAB PO SCH (12:10)
--- NOTE | 2019-08-07 10:17 | DS ---
CC: Manuel Ross NP; [facility] * DISCHARGE SUMMARY: DATE OF ADMISSION: 07/31/19 DATE OF DISCHARGE: 08/04/19 PROVIDER: Keyla Burt NP in Psychiatry. SUPERVISING PHYSICIAN: Dr. Zechariah Mulligan.* (DICTATED BY KEYLA BURT NP ) DIAGNOSIS: Bipolar 1 disorder. CONDITION AT THE TIME OF DISCHARGE: Improved, psychiatrically clear and stable. Participated in groups and was social with peers. She is agreeable to discharge. She has done well here psychiatrically. She tolerated the new medication Almyra. She will be attending [facility]. MENTAL STATUS EXAMINATION: At the time of discharge, Dawn is calm, cooperative, and makes good eye contact. She is alert and oriented x4. Her grooming is excellent. Her speech pace is normal. Her thought processes are logical. She is not psychotic or delusional. She denies AH, VH, SI, and HI. Her insight and judgment are good. She is willing to follow up and she is urged to see a therapist. DISCHARGE INSTRUCTIONS TO THE PATIENT: A. Medications: 1. Almyra Carbonate ER 900 mg at bedtime, dispensed 60, 450 mg tablets. 2. Meloxicam 7.5 mg daily up to 4 times a day. B. Diet is regular. C. Activities: As tolerated. She is a nonsmoker. There are no studies pending at the time of discharge. D. Followup care: She is referred to Manuel Ross NP, her primary care provider. They will call her directly regarding followup appointment. She is also referred to [facility]. A referral has been sent for intake and they will contact you with an appointment day and time. road worker will follow up next week to verify that Dawn has received an appointment. E. Disposition: She is being sent home to her own home or her house, but she is going to visit her mother and stay with her for a short while first. F. Substance abuse followup is not indicated. HOSPITAL COURSE: Part A: Chief complaint: "I have a lot of issues with people... I don't know how I make people angry." The patient is a 23-year-old single white female with a history of depression, who arrives brought in by herself and her mother and is here on a voluntary status after suicidal thoughts became overwhelming and she could no longer manage without external help. Dawn describes her life as very confusing. She states people are constantly telling her that she is doing things wrong and they are constantly teasing her. Her description sounds as though she is being bullied almost constantly. She states she does not get along with any of her coworkers and she feels as though she is constantly alone. She says when she is at home, she sits around and watches TV with her cat and she sleeps as much as possible. She states that she feels as though she reacts quickly and is irritable. She states that sometimes she has to "get into that" teasing and argue with them. She also asserts that she has "a quick temper... I let things build up" but we attempted to indicate that anyone who let things build up for as long as she does would indeed appear to have a quick temper while in fact they have a long fuse. Dawn describes having 2 types of behavior, she states the week before her period and the week of her period, her mother indicates that she makes no sense. She says she feels rage. She has memory gaps. She feels like a superhero, pain goes away from her. She often has sleeping problems, sometimes she sleeps too much, sometimes she does not sleep at all, and she states that she never gets rested. The following 2 weeks she is melancholy and lonely, feels abandoned, and has suicidal thoughts. Part B: Psychiatric treatment was rendered. Dawn was admitted to the adult behavioral unit and placed on 15-minute checks for safety. She did advance to 30- minute checks and staff pass privileges. She was safe on all checks. Dawn did well on the unit. She went to groups and interacted with peers well. Her admission date was 07/31/19. On date of service 08/02/19, Dawn was found in bed just waking up. She wanted to meet now versus later when she is more awake. She reports feeling "fussy" today but she understands this is likely from the Almyra and is temporary. She is eager to attend groups and agrees with her new diagnosis. Between groups, we play a game of Long Tail, which she is good at. She also enjoys [employer] and crossword puzzles. She is charming and polite when we play and talk. Concerns about her social skills were unfounded. On 08/03/19, Dawn was alerted to her discharge the next day and she was delighted. She understands that although she feels well today, I would like to increase her Almyra tonight and change it to ER. Also, I would like to get a lithium level in the morning as a baseline for going forward.. As we state she feels more clear than she has than she was "a little kid." She is bright and happy. She talked to her brother from whom she had been estranged. He acknowledged that her behavior in the past had been unacceptable at times, and he was worried about her being around his new baby with the way she had acted in the past. Dawn has put in play school such as decluttering her home and doing more than just watching television when she gets home. She is motivated and energized at this time. She was discharged on 08/04/19. Her lithium level was apparently never drawn. We can note that her hemoglobin A1c is 5.2, triglycerides are 57, cholesterol 208, LDL cholesterol 150, HDL cholesterol 46.4. Her TSH is 5.91. I considered adding 50 mcg of levothyroxine, but I know that she is working with Manuel Ross regarding this issue. My recommendation is to start levothyroxine, as people with bipolar disorder tend to be less depressed when their TSH is less than 3. Meeting with the family was not possible due to the [place] virus 19. RESTRICTIONS: No consults were entered. Dawn is significantly improved. She is bright and happy. She is not struggling or suffering as she was when she arrived. She is future oriented and eager to go home. She did request an additional week off from work and a letter was provided for that purpose. KEYLA BURT, ELIZABETH [id number]/[facility] #: [id number] MARLI
== END 2019-08-04 13:00 | disposition home or self-care (01) | DRG 753 ==
LOC: ED 13:50 → BSU 17:03
PROVIDERS: ADMIT Psychiatry & Neurology Psychiatry; ATTEND Psychiatry & Neurology Psychiatry
PROC: GZHZZZZ Group Psychotherapy (ICD-10-PCS; principal; 2019-08-01)
DX: F31.4 Bipolar disorder, current episode depressed, severe, without psychotic features (principal); R45.851 Suicidal ideations; M41.9 Scoliosis, unspecified; F41.9 Anxiety disorder, unspecified; Z91.5 Personal history of self-harm
CPT/HCPCS: 36415; 80053; 80061; 80307; 80320; 80329; 81003; 83036; 84443; 84702; 85025; 90853; 99222; 99231; 99284; A9270-GY; G0480

== ENCOUNTER 2019-08-12 11:02 | Emergency (ER) | payer BC ==
--- OUTSIDE RECORDS SUMMARY | 2019-08-12 11:15 | XMS REPORT | Continuity of Care Document ---
:1995 External Reference #:[id number] Author Name Manuel Ross NP Address [address], [place] [address] Care Team Providers Name Role Phone Terese Mejias MD - Internal Medicine Care Team Information Marketing Services Vice President Problems Active Problems Provider Date Mild recurrent [...] Fluticasone Propionate 2 sprays each 16gm Karyn Manrique, 06/01/2019 - nostril daily as N.P. 06/15/2019 50mcg/Act Suspension needed Medications Administered in Office Medication SIG Qnty Indications Ordering Provider Date Meningococcal,Unspecified Unknown 12/08/2010 Injection Polio,Unspecified Unknown 08/12/2002 Injection Polio,Unspecified Unknown 01/28/2002 Injection Polio,Unspecified Unknown 04/09/1997 Injection Polio,Unspecified Unknown 02/07/1997 Injection Immunizations CPT Code Status Date Vaccine Lot # [id number] Given 12/27/2013 Varicella (Chicken Pox) Immunization 39883 Given 12/21/2012 Gardasil (HPV) 08722 Given 01/17/2008 Tdap - Tetanus/Diptheria/Acellular Pertussis 87167 Given 08/12/2002 Tdap - Tetanus/Diptheria/Acellular Pertussis 74168 Given 07/26/2002 Varicella (Chicken Pox) Immunization 10580 Given 01/28/2002 Measles Mumps And Rubella MMR 17720 Given 12/24/2001 Tdap - Tetanus/Diptheria/Acellular Pertussis 57372 Given 12/24/2001 Measles Mumps And Rubella MMR 08701 Given 07/11/1997 Hib PRP-Omp Conjugate 3 Dose Schedule 42915 Given 07/11/1997 Tdap - Tetanus/Diptheria/Acellular Pertussis 60354 Given 07/11/1997 Hep B Pediatric/Adolescent 65944 Given 04/09/1997 Tdap - Tetanus/Diptheria/Acellular Pertussis 82998 Given 04/09/1997 Hib PRP-Omp Conjugate 3 Dose Schedule 86925 Given 02/07/1997 Hep B Pediatric/Adolescent 41755 Given 02/07/1997 Tdap - Tetanus/Diptheria/Acellular Pertussis 10858 Given 02/07/1997 Hib PRP-Omp Conjugate 3 Dose Schedule 26720 Given 1996 Hep B Pediatric/Adolescent Vital Signs [...] Date Facility Test Result H/L Range Note Influenza A & B 05/29/2019 [facility] Influenza A NEGATIVE Negative [address] [place] [address] [phone] Influenza B Molecular NEGATIVE Negative 2 Flu AB Disclaimer (SEE NOTE) 3 Laboratory test 05/29/2019 [facility] Culture SEE RESULT 4 , [address] [place] [address] [phone] CBC Auto Diff 02/12/2019 [facility] White Blood 6.8 10^3/uL Normal 3.5-[address] Count 0.8 [place] [address] [phone] Red Blood Count 4.46 10^6/uL Normal 3.70-4.87 [...] Blood Cells % 0.1 Comp Metabolic 02/12/2019 [facility] Sodium 135 mmol/L Normal 135-[address] [place] [address] [phone] Potassium 3.8 mmol/L Normal 3.5-5.0 Chloride 104 [...] Egfr Non- 95.2 >60 Egfr 115.1 >60 6 Laboratory test 02/12/2019 [facility] C Reactive 8.54 mg/L High <8.[address] [place] [address] [phone] HCG < 0.60 mIU/mL 7 1 [id number] 2 Metal Refiner: [id number] 3 Suboptimal collection technique may reduce sensitivity of test. Refer to the [facility] Test Catalog for collection information: [email or web address] As with all diagnostic procedures, the laboratory results obtained should be used in conjunction with other clinical information available to the physician, including confirmation by another method, as applicable. 4 [id number] 5 SEE RESULT BELOW Name: DAWN MONGE : [address]: Karyn Manrique NP Acct: [id number] Unit: [id number] AGE: 23 Location: [facility] Re05/29/19 SEX: F Status: REG REF SPEC: [id number] CHANTE: 05/29/19-[address]: Karyn Manrique NP REQ: [id number] RECD: 05/29/19 STATUS: COMP _ SOURCE: [facility]: ORDERED: Throat Culture COMMENTS: [id number] Procedure Result Reported Site Throat Culture Final 05/31/19- 0950 ML Organism 1 NORMAL SERGIO Quantity 3+ Throat cultures are clinically indicated to detect the presence of group A strep, arcanobacterium and yeast. In certain cases, predominating organisms will be reported. * ML - Main Lab . END OF REPORT DEPARTMENT OF PATHOLOGY, [address] [place] [address] Gaston Silva M.D. Director [facility] # [id number] 6 Because ethnic data is not always readily [...] 15-29 5 Kidney failure <15 (or dialysis) 7 <5.0 Negative 5.0 - 25.0 Indeterminate (Repeat testing recommended after 72 hours) >25.0 Positive Perimenopausal women can display HCG levels of up to 20 mIU/mL Procedures Description No Information Available Medical Devices Description No Information Available Encounters Type Date Location Provider Dx Diagnosis Office Visit 05/29/2019 [facility] Karyn Manrique J02.8 Acute pharyngitis 2:40p Medicine - Ccmob N.P. due to other specified organisms Assessments Date Code Description Provider 07/17/2019 J06.9 Acute upper respiratory infection, unspecified Manuel Vandana, ELIZABETH 07/17/2019 R53.83 Other fatigue Manueljamilah Ross, REGULATORY AFFAIRS COORDINATOR 07/17/2019 M25.50 Pain in unspecified joint Manuel Vandana, ELIZABETH 07/17/2019 L70.0 Acne vulgaris Manuel Ross NP 05/29/2019 J02.8 Acute pharyngitis due to other specified Karyn Manrique, N.P. organisms Plan of Treatment 07/17/2019 - Manuel Ross NPJ06.9 Acute upper respiratory infection, unspecifiedNew Labs:Influenza A & B Request, Ordered: 07/17/19Comments:Your symptoms are consistent with a viral upper respiratory infection. I recommend treating symptomatically. Drink plenty of fluids and try to rest as much as possible. If your symptoms worsen or do not improve please call the office.R53.83 Other olnvivdR22.50 Pain in unspecified zwiniV69.0 Acne vulgaris Functional Status Description No Information Available Mental Status Description No Information Available Referrals Description No Information Available
--- NOTE | 2019-08-12 11:33 | UC ---
UC General HPI - HPI Summary HPI Summary: sales and marketing representative notes reviewed - Had period few days ago; states that she is still having lower abdominal and lower back cramping; states feels a lot pressure in bladder; denies any vaginal discharge or bleeding; denies any n/v/d. Denies any fever. Denies any urinary symptoms. Denies any cough, SOB, denies any contact with + jacome that she knows of. Pleasant 23 yo female c/o progressive pelvic now abd pain Last period 08/03-. Has ended. Pain during menses, but didn't get better when menses complete. Pain has worsened. No unusual vag d/c. No fever. No dysuria / freq / urg / hematuria No n/v/d. Last BM last evening, normal (brown). No st / cough / cp / sob Last po approx 08:30am. Heating pad helps a little. Recently d/c'd from the hosp d/t suicidal ideation / BDO, but feels good now. Denies suicidal / homicidal ideation. Takes lithium, last level unclear. Hx heart murmur as a young child, reports that she was told that she grew out of it. - History of Current Complaint Chief Complaint: UCAbdominalPain Stated Complaint: LOWER ABDOMINAL PAIN Time Seen by Provider: 08/12/19 11:12 Hx Obtained From: Patient Hx Last Menstrual Period: a few days ago Pain Intensity: 4 - Allergy/Home Medications Allergies/Adverse Reactions: Allergies Allergy/AdvReac Type Severity Reaction Status Date / Time No Known Allergies Allergy Verified 08/12/19 11:06 Home Medications: Home Medications Meloxicam(NF) [Mobic(NF)] 7.5 mg PO DAILY 07/31/19 [History Confirmed 07/31/19] [place] Carbonate ER TAB* 900 mg PO BEDTIME #60 tab.er 08/04/19 [Rx] Levothyroxine TAB* [Synthroid TAB*] 25 mcg PO 0800 08/12/19 [History Confirmed 08/12/19] PMH/Surg Hx/FS Hx/Imm Hx Previously Healthy: Yes - see hpi. See prior hosp pmh. Other History Of: Negative For: Anticoagulant Therapy - Surgical History Surgical History: Yes Surgery Procedure, Year, and Place: Surgical October 2015, wisdom teeth extraction - Family History Known Family History: Positive: Cardiac Disease - father, Diabetes, Renal Disease - father, Other - Ovarian cysts father - ruptured appdx - Social History Alcohol Use: None Alcohol Amount: daily for last month. 1 glass of wine or a couple shots Substance Use Type: None Smoking Status (MU): Never Smoked Tobacco Household Exposure Type: Cigarettes - Immunization History Most Recent Influenza Vaccination: Fall 2018 Most Recent Pneumonia Vaccination: UNKNOWN Review of Systems All Other Systems Reviewed And Are Negative: Yes Constitutional: Positive: Negative Skin: Positive: Negative Eyes: Positive: Negative ENT: Positive: Negative Respiratory: Positive: Negative Cardiovascular: Positive: Negative Gastrointestinal: Positive: Other - see hpi Genitourinary: Positive: Other - see hpi Motor: Positive: Negative Neurovascular: Positive: Negative Musculoskeletal: Positive: Negative Neurological/Mental Status: Positive: Negative Psychological: Positive: Negative - see hpi Is Patient Immunocompromised?: No Physical Exam Triage Information Reviewed: Yes Appearance: Well-Nourished - sitting up, able to lie back flat for exam, but winces. Vital Signs Reviewed: Yes Eye Exam: Normal ENT Exam: Normal - mmm Neck exam: Normal Respiratory Exam: Normal Respiratory: Positive: Chest non-tender, Lungs clear, Normal breath sounds, No respiratory distress, No accessory muscle use Cardiovascular Exam: Other - HR regular, there are occasional extra beats, correlates with R radial pulse. Cardiovascular: Positive: Pulses Normal, Brisk Capillary Refill Abdominal Exam: Other - + distended, but no rebound + bowel sounds Tender josé luis lower quadrants, but pain R and L upper quadrants radiates to lower abd No cvat. Pain radiates to her back Musculoskeletal Exam: Normal - gait steady, moves x 4 ext's Neurological Exam: Normal - grossly nonfocal no tremor noted Psychological Exam: Normal - conversing easily and appropriately. nad. mood seems appropriate and calm. Skin Exam: Normal - nondiaphoretic no visible or reported rash Course/Dx - Course Course Of Treatment: Reviewed d/c summary / h&P from 07/31-08/04/2019. Reviewed blood work (lithium level n/a). Urine dip noted (nad) UCG neg Reviewed coa / tx plan, ie recommendation for ED evaluation and management. Dawn carefully considered this, and will go to the ED. Declines POV, wishes to go POV. Aware of the need to maintain PCP f/u. Questions answered as posed, to the best of my ability. - Diagnoses Provider Diagnosis: Acute pelvic pain, Acute abdominal pain Discharge ED - Sign-Out/Discharge Documenting (check all that apply): Patient Departure All imaging exams completed and their final reports reviewed: No Studies - Discharge Plan Condition: Stable Disposition: HOME-RECOMMEND TO ED Patient Education Materials: Acute Abdominal Pain (ED), Pelvic Pain (ED) Referrals: Manuel Ross, MANAGER OF INTERNAL AUDIT [Primary Care Provider] - Additional Instructions: Please go to the Emergency Department. Stop and call 911 if any problems on the way. Do not eat or drink anything on the way to the Emergency Department. - Billing Disposition and Condition Condition: STABLE Disposition: Home-Recommend to ED
[2019-08-12 11:42] VITALS: BP 116/67
== END 2019-08-12 12:00 | disposition home health service (06) ==
LOC: UCEAST 11:02
DX: R10.2 Pelvic and perineal pain (principal); R10.30 Lower abdominal pain, unspecified; R10.11 Right upper quadrant pain; R10.12 Left upper quadrant pain; M54.5 Low back pain; Z32.02 Encounter for pregnancy test, result negative
CPT/HCPCS: 81003; 84702; 99212; G0463

== ENCOUNTER 2021-06-13 09:50 | Inpatient (IN) ==
[2021-06-13 10:47] LABS: ABS Eosinophils 0.1 10^3/ul (0-0.6); ABS Lymphocytes 1.6 10^3/ul (1.0-4.8); ABS Monocytes 0.4 10^3/ul (0-0.8); ABS Neutrophils 4.7 10^3/ul (1.5-7.7); Eosinophil % 1.1 %; Hematocrit 42 % (35-47); Hemoglobin 13.8 g/dL (12.0-16.0); Lymphocyte % 23.6 %; Mean Corpuscular HGB Conc 33 g/dL (31-36); Mean Corpuscular Hemoglobin 27 pg (27-31); Mean Corpuscular Volume 82 fL (80-97); Mean Platelet Volume 9.1 fL (7.4-10.4); Nucleated Red Blood Cells % 0.1; Platelet Count 272 10^3/uL (150-450); Red Blood Count 5.04 10^6 /uL (3.70-4.87); Red Cell Distribution Width 13 % (10-15); White Blood Count 6.8 10^3/uL (3.5-10.8)
[2021-06-13 11:03] LABS: ALT 18 U/L (7-52); AST 19 U/L (13-39); Albumin 4.5 g/dL (3.2-5.2); Albumin/Globulin Ratio 1.4 (1-3); Alkaline Phosphatase 77 U/L (35-149); Anion Gap 7 mmol/L (2-11); Blood Urea Nitrogen 14 mg/dL (6-24); CO2 Carbon Dioxide 25 mmol/L (22-32); Calcium 9.9 mg/dL (8.6-10.3); Chloride 105 mmol/L (101-111); Globulin 3.3 g/dL (2-4); Glucose 112 mg/dL (70-100); Potassium 3.9 mmol/L (3.5-5.0); Sodium 137 mmol/L (135-145); Total Protein 7.8 g/dL (6.4-8.9); eGFR CKD-EPI 98.1 (>60)
[2021-06-13 11:09] LABS: HCG Pregnancy < 0.60 mIU/mL
[2021-06-13] MEDS ORDERED: Al Hydrox/Mg Hydrox/Simet LIQ 30 ML UDC PO PRN (11:40)
[2021-06-13 11:45] LABS: Acetaminophen < 15 mcg/mL; Alcohol, S < 13 mg/dL (<13); Salicylate < 2.50 mg/dL (<30)
[2021-06-13 11:56] LABS: T4, Total 11.57 mcg/dL (6.09-12.23)
[2021-06-13 12:00] LABS: TSH Ultra Thyroid Stim Horm 1.84 mcIU/mL (0.34-5.60)
[2021-06-13] MEDS ORDERED: risperiDONE-M 1 mg Oradis TAB PO PRN (12:53)
[2021-06-13 14:04] LABS: Vitamin B12 439 pg/mL (180-914)
[2021-06-13 14:07] LABS: Vitamin D Total 25(OH) 21.9 ng/mL (20-50)
[2021-06-14] MEDS: Vitamin THERAPEUTIC TAB PO SCH (07:41)
[2021-06-14 08:02] LABS: HDL Cholesterol 55.8 mg/dL
[2021-06-14] MEDS ORDERED: LORYNA PO SCH (09:00)
[2021-06-15] MEDS: Vitamin THERAPEUTIC TAB PO SCH (07:58)
[2021-06-15] MEDS: ETHINYL ESTRADIOL PO SCH (07:59)
[2021-06-15] MEDS: DROSPIRENONE PO SCH (07:59)
[2021-06-16] MEDS: Vitamin THERAPEUTIC TAB PO SCH (07:56)
[2021-06-16] MEDS: ETHINYL ESTRADIOL PO SCH (07:56)
[2021-06-16] MEDS: DROSPIRENONE PO SCH (07:56)
[2021-06-16 08:05] VITALS: BP 117/62
== END 2021-06-16 16:25 | disposition home or self-care (01) | DRG 753 ==
LOC: ED 09:50 → EDHOLD 11:47 → BSU 13:15
PROVIDERS: ADMIT Psychiatry & Neurology Psychiatry; ATTEND Psychiatry & Neurology Psychiatry